=== PATIENT | female | born 1980 | race African-American/Black ===

== ENCOUNTER 2024-04-21 12:38 | Emergency (ER) | payer SELFPAY ==
[~2024-04-21] VITALS: Ht 162.6 cm; Wt 56.8 kg
[~2024-04-21 12:38] MED LIST: FLAGYL500 MG PO; MOTRIN800 MG PO; NO HOME MEDICATIONS; ZITHROMAX 250M250 MG PO
[2024-04-21 12:45] VITALS: BP 126/81; PULSE 72; TEMP 98.6
[2024-04-21 14:34] LABS: BASO % 0.8 % (0.0-2.0); EOS # 0.1 K/mm3 (0.0-0.7); EOS % 1.6 % (0.0-4.0); GRAN # 1.6 K/mm3 (1.4-6.5); GRAN % 41.6 % (42.2-75.2); LYMPH # 1.8 K/mm3 (1.2-3.4); LYMPH % 47.7 % (20.0-51.0); MEAN CELL VOLUME 74 fl (80.0-100.0); MEAN CORPUSCULAR HGB CONC 31 g/dl (33.0-37.0); MEAN PLATELET VOLUME 9.8 fl (7.4-10.4); MONO # 0.3 K/mm3 (0.1-0.6); PLATELET COUNT 220 K/mm3 (130-400); RED BLOOD COUNT 3.17 M/mm3 (4.10-5.30); REDCELL DISTRIBUTION WIDTH-CV 19.7 % (11.5-14.5)
[2024-04-21 14:38] LABS: HEMATOCRIT 23.4 % (37.0-47.0); HEMOGLOBIN 7.2 g/dl (12.5-16.0); MEAN CORPUSCULAR HEMOGLOBIN 23 pg (27-31)
[2024-04-21 15:11] LABS: ALANINE AMINOTRANSFERASE 12 U/L (0-55); ALBUMIN 3.6 g/dL (3.5-5.0); ALKALINE PHOSPHATASE 65 U/L (40-150); ANION GAP 7 mmol/L (7-16); AST,SGOT 14 U/L (5-34); BILIRUBIN,TOTAL 0.4 mg/dL (0.2-1.2); BLOOD UREA NITROGEN 10 mg/dL (7-19); CALCIUM 8.9 mg/dL (8.4-10.2); CHLORIDE 111 mEq/L (98-107); CREATININE, serum 0.74 mg/dL (0.57-1.11); GLUCOSE 83 mg/dL (70-99); POTASSIUM 3.6 mEq/L (3.5-4.5); SODIUM 142 mEq/L (136-145); TOTAL PROTEIN 6.8 g/dl (6.2-8.1)
[2024-04-21 15:13] LABS: ALCOHOL(ethanol),MEDICAL < 10 mg/dL (0-10); SALICYLATE < 5.0 mg/dL (15.0-30.0)
[2024-04-21 15:46] LABS: TSH w REFLEX 1.417 uIU/mL (0.350-4.940)
[2024-04-21 17:16] LABS: COLLECTION METHOD CLEAN CATCH
[2024-04-21 17:20] LABS: URINE APPEARANCE CLEAR (CLEAR/HAZY); URINE BLOOD NEGATIVE (NEGATIVE); URINE COLOR YELLOW (YELLOW); URINE GLUCOSE NEGATIVE (NEGATIVE); URINE KETONE NEGATIVE (NEGATIVE); URINE NITRATE NEGATIVE (NEGATIVE); URINE PROTEIN(semi-quant) NEGATIVE (NEGATIVE)
[2024-04-21 17:40] LABS: TRICYCLIC ANTIDEPRESS URINE NEGATIVE (NEGATIVE)
[2024-04-21] MEDS ORDERED: Acetaminophen 500 MG TAB PO ONE (18:45)
== END 2024-04-21 20:50 | disposition left against medical advice (07) ==
LOC: COL.ER 12:38
PROVIDERS: Emergency Medicine
DX: R53.81 Other malaise (principal)